=== PATIENT | male | born 1970 | race Caucasian/White ===

== ENCOUNTER → 2016-07-23 | Day surgery (SDC) | payer OTHER ==
--- NOTE | 2016-07-25 09:39 | PATH ---
Cytology Non-Gynecological Report Patient Name: MARIO GARCIA [facility]. Rec. #: [id number] /Age/Gender: 1970 (Age: 46) / M Account: [id number] Location: RADIOLOGY Taken: 07/23/2016 Received: 07/23/2016 Reported: 07/25/2016 Physicians: Rhys Lane Specimen(s) Received LEFT THYROID FNA Clinical History Left thyroid nodule, 3.5 x 2.49 x 3.06 cm Final Diagnosis THYROID GLAND, LEFT LOBE, US GUIDED FINE NEEDLE ASPIRATION BIOPSY: SATISFACTORY FOR EVALUATION. SCATTERED CLUSTERS OF FOLLICULAR EPITHELIAL CELLS WITH HURTHLE CELL CHANGE, MACROPHAGES AND COLLOID (SEE COMMENT). Comment: The smears ad the cell block show scattered clusters of follicular epithelial cells, majority of which show Hurthle cell (oncocytic) change. Macrophages are present indicative of cystic change. Colloid is present. The findings are most compatible with an adenomatoid nodule with degenerative changes, including Hurthle cell change and cystic change ([place] Category II, benign). Electronically Signed Jamarcus Roque M.D. Gross Description Received are four air dried smears, four smears in 95% alcohol, and 20cc of bloody fluid in formalin. Four diff-quik stained slides, four Pap stained slides and one cell block are made.
== END | disposition home or self-care (01) ==
LOC: JRADIR 08:18
PROVIDERS: ATTEND Internal Medicine Geriatric Medicine
PROC: 0G9G3ZX Drainage of Left Thyroid Gland Lobe, Percutaneous Approach, Diagnostic (ICD-10-PCS; principal; 2016-07-23)
PROC: BG44ZZZ Ultrasonography of Thyroid Gland (ICD-10-PCS; 2016-07-23)
DX: E04.1 Nontoxic single thyroid nodule (principal)
CPT/HCPCS: 76942; 88173; 88305-TC